=== PATIENT | female | born 1980 | race Caucasian/White ===

== ENCOUNTER 2017-11-03 10:06 | Day surgery (SDC) | payer OTHER ==
[~2017-11-03 10:06] MED LIST: ATROPINE 1 MG/10 ML SYRINGE IV; DIPHENHYDRAMINE 50 MG INJ IV; EPHEDrine SULFATE 50 MG/5 ML SYG IV; FENTAnyl 50 MCG/ML VIAL IV; HYDROmorphONE (0.2 MG/ML) 10ML SYG IV; LABETALOL HCL 20MG INJ IV; MEPERIDINE 25 MG INJ IV; MIDAZOLAM 1 MG/ML 2 ML INJ IV; OXYCODONE/ACETAMINOPHEN (5/325) TAB PO; hydrALAzine 20 MG INJ IV; morphine (1 MG/ML) 10ML SYRINGE IV
[2017-11-03 12:35] LABS: ADD MAN DIFF? NO
[2017-11-03 12:39] LABS: BASOPHIL # 0.1 10^3/ul (0.0-0.1); BASOPHILS % 0.9 % (0.0-2.0); EOSINOPHILS # 0.3 10^3/ul (0.0-0.5); EOSINOPHILS % 3.3 % (0.0-7.0); HEMATOCRIT 33.1 % (37.0-47.0); HEMOGLOBIN 10.4 g/dl (12.0-16.0); LYMPHOCYTES # 2.3 10^3/ul (0.8-2.9); MEAN CORPUSCULAR HEMOGLOBIN 24.3 pg (29.0-33.0); MEAN CORPUSCULAR HGB CONC 31.4 g/dl (32.0-37.0); MEAN CORPUSCULAR VOLUME 77.3 fl (82.0-101.0); MEAN PLATELET VOLUME 10.4 fl (7.4-10.4); MONOCYTE # 0.6 10^3/ul (0.3-0.9); MONOCYTES % 7.7 % (0.0-11.0); NEUTROPHIL # 4.6 10^3/ul (1.6-7.5); NEUTROPHILS % 58.8 % (39.0-77.0); PLATELET COUNT 413 10^3/UL (140-415); RED BLOOD COUNT 4.28 10^6/ul (4.20-5.40); RED CELL DISTRIBUTION WIDTH 15.2 % (11.5-14.5)
[2017-11-03 12:39] LABS: WHITE BLOOD COUNT 7.8 10^3/ul (4.8-10.8)
[2017-11-03 13:12] LABS: ANION GAP 17 (8-16); CARBON DIOXIDE 23 mmol/L (21-31); CHLORIDE 104 mmol/L (97-110); GLUCOSE 96 mg/dl (70-220)
[2017-11-03 13:14] LABS: BLOOD UREA NITROGEN 11 mg/dl (7-20); CALCIUM 9.3 mg/dl (8.4-10.2); CREATININE 0.62 mg/dl (0.44-1.00); POTASSIUM 4.1 mmol/L (3.5-5.1); SODIUM 140 mmol/L (135-144)
[2017-11-03] MEDS ORDERED: PROPOFOL 20 ML (13:31)
[2017-11-03] MEDS ORDERED: NEOSTIGMINE 3 MG/3 ML SYRINGE (13:31)
[2017-11-03] MEDS ORDERED: ROCURONIUM 50 MG INJ (13:31)
[2017-11-03] MEDS ORDERED: MIDAZOLAM 1 MG/ML 2 ML INJ (13:31)
[2017-11-03] MEDS ORDERED: LIDOCAINE 2% (SDV) 5 ML INJ (13:31)
[2017-11-03] MEDS ORDERED: GLYCOPYRROLATE 0.4 MG INJ (13:31)
[2017-11-03] MEDS ORDERED: FENTAnyl 50 MCG/ML VIAL (13:32)
[2017-11-03] MEDS ORDERED: DEXAMETHASONE 4 MG/ML 1 ML INJ ×2 (13:35→14:54)
[2017-11-03] MEDS ORDERED: ONDANSETRON 4 MG INJ ×2 (13:36→14:54)
[2017-11-03] MEDS ORDERED: SUCCINYLCHOLINE CHLORIDE 100 MG/5 ML SYG IV (14:01)
[2017-11-03] MEDS: ONDANSETRON 4 MG INJ IV (14:46)
[2017-11-03] MEDS: FENTAnyl 50 MCG/ML VIAL IV (14:47)
[2017-11-03] MEDS: HYDROCODONE/APAP (5/325) TAB PO (16:01)
== END 2017-11-03 16:55 | disposition home or self-care (01) ==
LOC: SDS 10:06
DX: N60.11 Diffuse cystic mastopathy of right breast (principal); Z87.891 Personal history of nicotine dependence
CPT/HCPCS: 19120; 80048; 84703; 85025; 88307; 88313